=== PATIENT | male | born 1950 | race Caucasian/White ===

== ENCOUNTER 2020-10-27 14:55 | Outpatient (CLI) | payer MEDICARE | END 2020-10-27 14:56 | disposition home or self-care (01) | LOC: CSHRAD 14:55 | PROVIDERS: ATTEND Internal Medicine Cardiovascular Disease | DX: T82.120A Displacement of cardiac electrode, initial encounter (principal); Z95.0 Presence of cardiac pacemaker | CPT/HCPCS: 71046 ==